=== PATIENT | male | born 1965 | race Caucasian/White ===

== ENCOUNTER 2021-10-22 12:45 | Emergency (ER) | payer SELFPAY ==
[2021-10-22 13:05] VITALS: O2SAT 98
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
[2021-10-22 14:33] VITALS: BP 163/94; PULSE 72
== END 2021-10-22 14:33 | disposition home or self-care (01) ==
LOC: ED 12:45
DX: S46.912A Strain of unspecified muscle, fascia and tendon at shoulder and upper arm level, left arm, initial encounter (principal); V43.52XA Car driver injured in collision with other type car in traffic accident, initial encounter; Y92.414 Local residential or business street as the place of occurrence of the external cause; M25.512 Pain in left shoulder; E78.5 Hyperlipidemia, unspecified
CPT/HCPCS: 73030; 99285